=== PATIENT | female | born 1935 | race Caucasian/White ===

== ENCOUNTER → 2016-06-02 | Outpatient (CLI) | payer MEDICARE, OTHER | END | disposition home or self-care (01) | LOC: PCVCCLINIC 09:40 | PROVIDERS: ATTEND Internal Medicine Cardiovascular Disease | DX: E78.00 Pure hypercholesterolemia, unspecified (principal); I10 Essential (primary) hypertension; M19.90 Unspecified osteoarthritis, unspecified site; R00.1 Bradycardia, unspecified | CPT/HCPCS: 80061; 93005; G0463 ==

== ENCOUNTER → 2017-03-02 | Outpatient (CLI) | payer MEDICARE, OTHER ==
--- NOTE | 2017-03-02 11:50 | PCVCIMAG ---
APPROVED REPORT Study performed: 03/02/2017 09:25:56 EXAM: Comprehensive 2D, Doppler, and color-flow Echocardiogram Patient Location: Echo lab Room #: 2Status: routine BSA: 1.87 HR: 73 bpmBP: 164/74 mmHg Rhythm: NSR Other Information Study Quality: Adequate Risk Factors: Cardiac Risk Factors: HTN, Hyperlipidemia Indications Peripheral Edema Hypertension/HDD HX old [place] 2D Dimensions LVEF(%): 80.48 (>50%) IVSd: 9.94 (7-11mm)LVOT Diam: 19.21 (18-24mm) LVDd: 38.44 mm PWd: 7.52 (7-11mm)Ascending Ao: 27.77 (22-36mm) LVDs: 19.82 (25-40mm) Left Atrium: 27.08 (27-40mm) Aortic Root: 21.54 mm LV Single Plane 4CH: 63.07 % LV Single Plane 2CH: 52.66 %Sherwood's LVEF: 57.87 % Biplane EF: 57.1 % Volumes Left Atrial Volume (Systole) Single Plane 4CH: 30.86 mLSingle Plane 2CH: 17.43 mL Biplane LA Volume: 26.00 mLLA ESV Index: 14.00 mL/m2 Aortic Valve AoV Peak Juan A.: 1.26 m/s AO Peak Gr.: 6.30 mmHgLVOT Max P.85 mmHg LVOT Max V: 0.84 m/s HIRAM Vmax: 1.95 cm2 Mitral Valve E/A Ratio: 0.6 MV Decel. Time: 250.47 ms MV E Max Juan A.: 0.63 m/s MV A Juan A.: 0.98 m/s IVRT: 101.50 ms TDI E/Lateral E': 15.75E/Medial E': 15.75 Medial E' Juan A.: 0.04 m/s Lateral E' Juan A.: 0.04 m/s Pulmonary Valve PV Peak Juan A.: 1.10 m/sPV Peak Gr.: 4.84 mmHg Pulmonary Vein P Vein S: 0.58 m/sP Vein A: 0.31 m/s P Vein D: 0.27 m/sP Vein A Dur.: 96.9 msec P Vein S/D Ratio: 2.15 Tricuspid Valve TR Peak Juan A.: 2.79 m/s TR Peak Gr.: 31.16 mmHg TV Vmax: 0.70 m/sPA Pressure: 38.00 mmHg Left Ventricle The left ventricle is normal size. Mild LV gradient is seen with inspiration. There is normal LV segmental wall motion. Borderline concentric left ventricular hypertrophy. Left ventricular systolic function is normal. The left ventricular ejection fraction is within the normal range. LVEF is 55-60%. Grade I - abnormal relaxation pattern. Right Ventricle The right ventricle is normal size. The right ventricular systolic function is normal. Atria The left atrium size is normal. The right atrium size is normal. Aortic Valve The aortic valve is normal in structure. No aortic regurgitation is present. There is no aortic valvular stenosis. Mitral Valve The mitral valve is normal in structure. There is no mitral valve regurgitation noted. No evidence of mitral valve stenosis. Tricuspid Valve The tricuspid valve is normal in structure. Trace to mild tricuspid regurgitation with a PA pressure of 38 mmHg. Pulmonic Valve The pulmonary valve is normal in structure. Trace to mild pulmonic regurgitation. Great Vessels The aortic root is normal in size. The ascending aorta is normal in size. IVC is normal in size and collapses <50% with inspiration. Pericardium There is no pericardial effusion. There is no pleural effusion. <Conclusion> The left ventricle is normal size. Mild LV gradient is seen with inspiration. Borderline concentric left ventricular hypertrophy. LVEF is 55-60%. Grade I - abnormal relaxation pattern. The right ventricle is normal size. The left atrium size is normal. There is no aortic valvular stenosis. There is no mitral valve regurgitation noted. Trace to mild tricuspid regurgitation with a PA pressure of 38 mmHg. There is no pericardial effusion.
== END | disposition home or self-care (01) ==
LOC: PCVCIMAG 09:19
PROVIDERS: ATTEND Internal Medicine Cardiovascular Disease
DX: I07.1 Rheumatic tricuspid insufficiency (principal); I37.1 Nonrheumatic pulmonary valve insufficiency; E78.00 Pure hypercholesterolemia, unspecified; M19.90 Unspecified osteoarthritis, unspecified site; I87.8 Other specified disorders of veins; I25.2 Old myocardial infarction; R60.0 Localized edema; I11.0 Hypertensive heart disease with heart failure; I50.9 Heart failure, unspecified; Z90.710 Acquired absence of both cervix and uterus; Z79.82 Long term (current) use of aspirin; Z88.8 Allergy status to other drugs, medicaments and biological substances
CPT/HCPCS: 80061; 93005; 93306; G0463

== ENCOUNTER → 2017-10-26 | Outpatient (CLI) | payer MEDICARE, OTHER | END | disposition home or self-care (01) | LOC: PCVCCLINIC 13:36 | DX: E78.00 Pure hypercholesterolemia, unspecified (principal); I10 Essential (primary) hypertension; R94.31 Abnormal electrocardiogram [ECG] [EKG]; Z79.82 Long term (current) use of aspirin; Z88.8 Allergy status to other drugs, medicaments and biological substances | CPT/HCPCS: 93005; G0463 ==

== ENCOUNTER → 2018-07-25 | Outpatient (CLI) | payer MEDICARE, OTHER | END | disposition home or self-care (01) | LOC: PCVCCLINIC 13:50 | PROVIDERS: ATTEND Internal Medicine Cardiovascular Disease | DX: I11.0 Hypertensive heart disease with heart failure (principal); I50.9 Heart failure, unspecified; E78.5 Hyperlipidemia, unspecified; I25.10 Atherosclerotic heart disease of native coronary artery without angina pectoris; E11.9 Type 2 diabetes mellitus without complications; E78.00 Pure hypercholesterolemia, unspecified; I25.2 Old myocardial infarction; Z79.82 Long term (current) use of aspirin; Z79.899 Other long term (current) drug therapy; Z88.8 Allergy status to other drugs, medicaments and biological substances | CPT/HCPCS: 36415; 80061; 93005; G0463 ==

== ENCOUNTER → 2019-03-21 | Outpatient (CLI) | payer MEDICARE, OTHER ==
--- NOTE | 2019-03-21 15:28 | PCVCIMAG ---
APPROVED REPORT Study performed: 03/21/2019 13:26:26 EXAM: Comprehensive 2D, Doppler, and color-flow Echocardiogram Patient Location: Echo lab Room #: 2Status: routine BSA: 1.85 HR: 71 bpmBP: 162/84 mmHg Rhythm: NSR Other Information Study Quality: Adequate Risk Factors: Cardiac Risk Factors: HTN, Hyperlipidemia, DM Indications CAD Hx old [place] 2D Dimensions IVSd: 11.54 (7-11mm)LVOT Diam: 20.15 (18-24mm) LVDd: 38.67 mm PWd: 12.79 (7-11mm)Ascending Ao: 27.60 (22-36mm) LVDs: 16.14 (25-40mm) Left Atrium: 32.71 (27-40mm) Aortic Root: 24.28 mm LV Single Plane 4CH: 53.03 % LV Single Plane 2CH: 55.08 % Biplane EF: 55.1 % Volumes Left Atrial Volume (Systole) Single Plane 4CH: 34.33 mLSingle Plane 2CH: 22.74 mL Biplane LA Volume: 29.00 mLLA ESV Index: 16.00 mL/m2 Aortic Valve AoV Peak Juan A.: 1.24 m/s AO Peak Gr.: 7.26 mmHgLVOT Max P.78 mmHg AO Mean Gr.: 4.54 mmHgLVOT Mean P.42 mmHg AO V2 Mean: 1.05 m/sLVOT Max V: 0.84 m/s AO V2 VTI: 33.04 cmLVOT Mean V: 0.56 m/s HIRAM (VTI): 1.83 [id number] VTI: 18.97 cm HIRAM Vmax: 2.15 cm2 SV (LVOT): 60.47 mL Mitral Valve E/A Ratio: 0.7 MV Decel. Time: 205.60 ms MV E Max Juan A.: 0.88 m/s MV A Juan A.: 1.20 m/s IVRT: 93.43 ms TDI E/Lateral E': 17.60E/Medial E': 17.60 Medial E' Juan A.: 0.05 m/s Lateral E' Juan A.: 0.05 m/s Pulmonary Valve PV Peak Juan A.: 0.76 m/sPV Peak Gr.: 2.28 mmHg Pulmonary Vein P Vein S: 0.47 m/sP Vein A: 0.38 m/s P Vein D: 0.37 m/sP Vein A Dur.: 117.6 msec P Vein S/D Ratio: 1.27 Tricuspid Valve TR Peak Juan A.: 2.78 m/s TR Peak Gr.: 30.92 mmHg TV Vmax: 0.62 m/sPA Pressure: 41.00 mmHg Left Ventricle The left ventricle is normal size. No regional wall motion abnormalities noted. Mild basal septal hypertrophy is present. The left ventricular systolic function is normal. The left ventricular ejection fraction is within the normal range. LVEF is 55%. Grade I - abnormal relaxation pattern. Findings suggest the left atrial pressure is elevated. Right Ventricle The right ventricle is normal size. The right ventricular systolic function is normal. Atria The left atrium size is normal. The right atrium size is normal. Aortic Valve Aortic valve is trileaflet. Mild aortic valve sclerosis. No aortic regurgitation is present. No gradient is seen across the LVOT or Aortic valve. No change with Valsalva. Mitral Valve The mitral valve is normal in structure. There is no mitral valve regurgitation noted. No evidence of mitral valve stenosis. Tricuspid Valve The tricuspid valve is normal in structure. Mild tricuspid regurgitation with a PA pressure of 41 mmHg. There is moderate pulmonary hypertension. Pulmonic Valve The pulmonary valve is normal in structure. There is no pulmonic valvular regurgitation. Great Vessels The aortic root is normal in size. The ascending aorta is normal in size. Aortic arch is normal in caliber. IVC is normal in size and collapses <50% with inspiration. Pericardium There is no pericardial effusion. There is no pleural effusion. <Conclusion> The left ventricle is normal size. Mild basal septal hypertrophy is present. LVEF is 55%. Grade I - abnormal relaxation pattern. Findings suggest the left atrial pressure is elevated. The right ventricle is normal size. The left atrium size is normal. Aortic valve is trileaflet. Mild aortic valve sclerosis. No gradient is seen across the LVOT or Aortic valve. No change with Valsalva. No gradient is seen across the LVOT or Aortic valve. No change with Valsalva. There is no mitral valve regurgitation noted. Mild tricuspid regurgitation with a PA pressure of 41 mmHg. There is moderate pulmonary hypertension. The aortic root is normal in size. There is no pericardial effusion.
== END | disposition home or self-care (01) ==
LOC: PCVCIMAG 13:14
PROVIDERS: ATTEND Internal Medicine Cardiovascular Disease
DX: I08.2 Rheumatic disorders of both aortic and tricuspid valves (principal); I25.10 Atherosclerotic heart disease of native coronary artery without angina pectoris; I25.2 Old myocardial infarction; I27.20 Pulmonary hypertension, unspecified; E78.00 Pure hypercholesterolemia, unspecified; E11.9 Type 2 diabetes mellitus without complications; I11.0 Hypertensive heart disease with heart failure; I50.9 Heart failure, unspecified; Z79.82 Long term (current) use of aspirin; Z88.8 Allergy status to other drugs, medicaments and biological substances; Z79.899 Other long term (current) drug therapy; Z79.84 Long term (current) use of oral hypoglycemic drugs
CPT/HCPCS: 36415; 80061; 93005; 93306; G0463